=== PATIENT | female | born 1995 | race Hispanic/Latino ===

== ENCOUNTER 2018-06-01 14:02 | Observation (INO) | payer OTHER ==
[2018-06-01 15:02] LABS: APPEARANCE,URINE Turbid (CLEAR); BILIRUBIN,URINE Small (NEGATIVE); COLOR,URINE Red (YELLOW); GLUCOSE, URINE (UA) TRACE mg/dL (NEGATIVE); KETONES,URINE Negative (NEGATIVE); LEUKOCYTE ESTERASE ,URINE Large (NEGATIVE); NITRATE,URINE Negative (NEGATIVE); OCCULT BLOOD,URINE Large (NEGATIVE); PH,URINE 7.5 (5.0-8.0); PROTEIN,URINE POS 1+ (NEGATIVE)
[2018-06-01 15:30] LABS: RBC,URINE >100 /HPF (0-1)
[2018-06-01 15:32] LABS: BACTERIA,URINE Few /HPF (None Seen)
[2018-06-01 15:33] LABS: SQUAMOUS EPITHELIAL CELL,UR Few /HPF (0-2)
[2018-06-01] MEDS ORDERED: LACTATED RINGERS 1000ML IV SCH (16:15)
== END 2018-06-01 17:21 | disposition home or self-care (01) ==
LOC: EDH 14:02 → LDH 14:03 → UNDOADMOB 14:23
PROVIDERS: ADMIT Obstetrics & Gynecology; ATTEND Obstetrics & Gynecology
DX: O23.43 Unspecified infection of urinary tract in pregnancy, third trimester (principal); Z3A.31 31 weeks gestation of pregnancy
CPT/HCPCS: 81001; 99284; G0378 ×3; J7120; 96360; 96361

== ENCOUNTER 2018-06-05 13:26 | Observation (INO) | payer OTHER ==
[2018-06-05 14:20] LABS: APPEARANCE,URINE Cloudy (CLEAR); BILIRUBIN,URINE Negative (NEGATIVE); COLOR,URINE Red (YELLOW); GLUCOSE, URINE (UA) Negative (NEGATIVE); KETONES,URINE Negative (NEGATIVE); LEUKOCYTE ESTERASE ,URINE Moderate (NEGATIVE); NITRATE,URINE Negative (NEGATIVE); OCCULT BLOOD,URINE Large (NEGATIVE); PROTEIN,URINE Negative (NEGATIVE); UROBILINOGEN,URINE 0.2 mg/dL (0.2-1.0)
[2018-06-05 14:21] LABS: BASOPHILS % (AUTO) 0.4 % (0.0-5.0); EOSINOPHILS % (AUTO) 0.4 % (0.0-8.0); HEMATOCRIT 37.4 % (36-48); LYMPHOCYTES % (AUTO) 22.3 % (21.0-51.0); MEAN CORPUSCULAR HEMOGLOBIN 30.6 pg (27.0-33.0); MEAN CORPUSCULAR HGB CONC 34.4 g/dL (32.0-36.0); MEAN CORPUSCULAR VOLUME 88.9 fL (80-100); NEUTROPHILS % (AUTO) 70.9 % (40.0-77.0); PLATELET COUNT (AUTO) 274 K/uL (130-400); RED BLOOD CELL COUNT(AUTO) 4.21 MIL/uL (4.00-5.50); RED CELL DISTRIBUTION WIDTH 12.6 % (11.0-15.5); WHITE BLOOD COUNT (AUTO) 8.6 K/uL (4.8-10.8)
[2018-06-05 15:03] LABS: RBC,URINE >100 /HPF (0-1)
[2018-06-05 15:05] LABS: BACTERIA,URINE Rare /HPF (None Seen); SQUAMOUS EPITHELIAL CELL,UR Rare /HPF (0-2)
== END 2018-06-05 16:45 | disposition home or self-care (01) ==
LOC: EDH 13:26 → LDH 13:58
DX: O46.93 Antepartum hemorrhage, unspecified, third trimester (principal); O26.893 Other specified pregnancy related conditions, third trimester; R10.2 Pelvic and perineal pain; Z3A.31 31 weeks gestation of pregnancy
CPT/HCPCS: 36415; 59025; 76805; 81001; 85025; 99284; G0378 ×3

== ENCOUNTER 2019-11-21 15:58 | Emergency (ER) | payer MEDICAID, OTHER | END 2019-11-21 18:56 | disposition home or self-care (01) | LOC: EDH 15:58 | DX: O03.9 Complete or unspecified spontaneous abortion without complication (principal); Z3A.08 8 weeks gestation of pregnancy | CPT/HCPCS: 36415; 76801; 84702; 86900; 86901 ==